=== PATIENT | male | born 1965 | race Two or more races ===

== ENCOUNTER 2020-08-16 11:20 | Emergency (ER) | payer OTHER ==
[2020-08-16 11:29] VITALS: BP 139/76
--- NOTE | 2020-08-16 11:54 | ER Document Report ---
ED Hand/Wrist Injury - General Chief Complaint: Thumb Injury Stated Complaint: RIGHT THUMB PAIN Time Seen by Provider: 08/16/20 11:48 Notes: CHIEF COMPLAINT: Right thumb injury HPI: 54-year-old male presenting for injury to the base of the right thumb. Initial injury occurred a month ago at work states a shepard he was putting up on a high shelf came back and caught his thumb hyperextending it backwards. Did not report the injury at that time. Today while he was scraping a table the scraper caught and bent the thumb back again now with pain at the proximal aspect of the thumb with difficulty moving it. Denies other injuries or complaints ROS: See HPI - all other systems were reviewed and are otherwise negative Constitutional: no fever Integumentary: no rash Allergy: no hives Musculoskeletal: + extremity pain or swelling Neurological: no numbness/tingling MEDICATIONS: I agree with the patient medications as charted by the RN. ALLERGIES: I agree with the allergies as charted by the RN. PAST MEDICAL HISTORY/PAST SURGICAL HISTORY: Reviewed and agree as charted by RN. SOCIAL HISTORY: Reviewed and agree as charted by RN. FAMILY HISTORY: No significant familial comorbid conditions directly related to patient complaint EXAM: Reviewed vital signs as charted by RN. CONSTITUTIONAL: Alert and oriented and responds appropriately to questions. Well-appearing; well-nourished HEAD: Normocephalic; atraumatic EYES: Conjunctivae clear, sclerae non-icteric ENT: normal nose; no rhinorrhea; moist mucous membranes NECK: Supple without meningismus CARD: symmetric distal pulses RESP: Normal chest excursion without splinting or tachypnea ABD/GI: non-distended. BACK: The back appears normal EXT: There is swelling at the MCP region of the right thumb with tenderness on palpation. No definitive laxity but difficult exam secondary to patient comfort. Sensation is intact in the distal tip of the thumb of the right hand with capillary refill less than 3 seconds. Patient is able to flex and extend the right thumb at the DIP joint space region SKIN: Normal color for age and race; warm; dry; good turgor; no acute lesions noted NEURO: Moves all extremities equally; Motor and sensory function intact PSYCH: The patient's mood and manner are appropriate. Grooming and personal hygiene are appropriate. 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 Will obtain x-ray for fracture. Given the nature of the injury will place patient in a protective splint and have him follow-up with orthopedic hand for follow-up Past Medical History - Social History Smoking Status: Unknown if Ever Smoked Family History: Reviewed & Not Pertinent Physical Exam - Vital signs Vitals: Temp Pulse Resp BP Pulse Ox 98.3 F 58 L 14 139/76 H 98 08/16/20 11:27 08/16/20 11:27 08/16/20 11:27 08/16/20 11:27 08/16/20 11:27 Course - Re-evaluation Re-evalutation: 08/16/20 12:15 Patient does appear to have some chipping of the bone or possibly arthritic changes at the MCP joint of the right thumb, unknown whether this may be related to the initial injury a month ago versus new injury today we will plan to splint the thumb and refer to orthopedics - Vital Signs Vital signs: Temp Pulse Resp BP Pulse Ox 98.3 F 58 L 14 139/76 H 98 08/16/20 11:27 08/16/20 11:27 08/16/20 11:27 08/16/20 11:27 08/16/20 11:27 - Laboratory Results Critical Laboratory Results Reviewed: No Critical Results - Radiology Results Critical Radiology Results Reviewed: No Critical Results Procedures - Immobilization Right Hand Thumb Time completed: 12:16 Pre-Proc Neuro Vasc Exam: Normal Immobilizer type: Thumb spica Performed by: PCT Post-Proc Neuro Vasc Exam: Normal, Unchanged from pre-exam Alignment checked and good: Yes Discharge - Discharge Clinical Impression: Gamekeeper's thumb of right hand Qualifiers: Encounter type: initial encounter Qualified Code(s): S53.31XA - Traumatic rupture of right ulnar collateral ligament, initial encounter Condition: Stable Disposition: HOME, SELF-CARE Instructions: Splint Precautions ([facility]) Additional Instructions: Take the Voltaren consistently for pain. Ice to the hand and thumb region 2-3 times daily for 5 to 10 minutes at a time over the splint. This will help with swelling and pain. Follow-up with orthopedics for further evaluation and treatment call for appointment Prescriptions: Diclofenac Sodium [Voltaren 50 Mg Tablet.] 50 mg PO BID #20 tablet. Referrals: VAZQUEZ,TY W JR, DO [ACTIVE PROVISIONAL STAFF] - Follow up as needed
--- NOTE | 2020-08-16 12:35 | RADIOLOGY REPORT (SQ) ---
EXAM DESCRIPTION: FINGER RIGHT IMAGES COMPLETED DATE/TIME: 08/16/2020 11:04 am REASON FOR STUDY: right thumb inj. Injury last month, patient feels like finger is dislocated. COMPARISON: None. NUMBER OF VIEWS: Three views. TECHNIQUE: AP, lateral, and oblique images acquired of the right thumb. LIMITATIONS: None. FINDINGS: MINERALIZATION: Normal. BONES: There is a dystrophic calcification at the 1st digit metacarpophalangeal joint space which may represent a healing corner fracture at the distal metacarpal. No acute displaced fracture. SOFT TISSUES: There is marked soft tissue swelling at the 1st digit metacarpophalangeal joint space. OTHER: No other significant finding. IMPRESSION: Swelling at the 1st digit metacarpal phalangeal joint space in the area of pain. On the lateral view, there is dystrophic calcification adjacent to the distal head of the 1st digit metacar pal which may represent a healing avulsion injury. Clinical correlation is recommended. COMMENT: SITE OF TRAUMA/COMPLAINT MARKED/STAMP COMPLETED: Yes TECHNICAL DOCUMENTATION: JOB ID: [id number] 2010 [employer]- All Rights Reserved Reading location - IP/workstation name: [email or web address]
== END 2020-08-16 13:01 | disposition home or self-care (01) ==
LOC: ER 11:20
DX: S53.31XA Traumatic rupture of right ulnar collateral ligament, initial encounter (principal); W22.8XXA Striking against or struck by other objects, initial encounter
CPT/HCPCS: 99283